=== PATIENT | male | born 1990 | race African-American/Black ===

== ENCOUNTER 2016-08-20 11:57 | Emergency (ER) | payer OTHER ==
[2016-08-20 12:15] VITALS: BP 109/56
--- NOTE | 2016-08-20 12:26 | PHYS DOC ---
Past Medical History Past Medical History: No Pertinent History Past Surgical History: No Surgical History Alcohol Use: None Drug Use: None Adult General Chief Complaint Chief Complaint: LOWER BACK PAIN OR INJURY [facility] HPI Patient is a 26 year old male presents emergency department stating that he has a history of chronic back pain. He states his pain is on his left lower back area with some numbness and tingling down to his leg. He states he took some type of muscle relaxer last night that was 50 mg and it did not help. Patient states the only medication that will help him is oxycodone and if he is not going to be prescribed at that he doesn't want anybody wasting his time. Patient denies any trauma or injuries. He states that he may have hurt his back when he was in high school playing football. [] Review of Systems Review of Systems Constitutional: Denies fever or chills [] Eyes: Denies change in visual acuity, redness, or eye pain [] HENT: Denies nasal congestion or sore throat [] Respiratory: Denies cough or shortness of breath [] Cardiovascular: No additional information not addressed in HPI [] GI: Denies abdominal pain, nausea, vomiting, bloody stools or diarrhea [] : Denies dysuria or hematuria [] Musculoskeletal: Left lower back pain denies joint pain Integument: Denies rash or skin lesions [] Neurologic: Denies headache, focal weakness or sensory changes [] Endocrine: Denies polyuria or polydipsia [] Allergies Allergies Allergies Coded Allergies Type Severity Reaction Last Updated Verified No Known Drug Allergies 01/04/14 No Physical Exam Physical Exam Constitutional: Well developed, well nourished, no acute distress, non-toxic appearance. [] HENT: Normocephalic, atraumatic, bilateral external ears normal, oropharynx moist, no oral exudates, nose normal. [] Eyes: PERRLA, EOMI, conjunctiva normal, no discharge. [] Neck: Normal range of motion, no tenderness, supple, no stridor. [] Cardiovascular:Heart rate regular rhythm Lungs & Thorax: No respiratory distress noted [] Skin: Warm, dry, no erythema, no rash. [] Back: Left lower back tenderness noted along the paraspinal area. No thoracic spine, no lumbar spine tenderness no deformities no crepitus no step-offs noted Extremities: No tenderness, no cyanosis, no clubbing, ROM intact, no edema. Peripheral pulses 2+ cap refill brisk less than 2 seconds. Patient was able to move lower extremities with no difficulty. Patient was able to bring the bilateral legs up with minimal discomfort noted. Neurologic: Alert and oriented X 3, normal motor function, normal sensory function, no focal deficits noted. [] Psychologic: Affect normal, judgement normal, mood normal. [] Current Patient Data Vital Signs Vital Signs Date Time Temp Pulse Resp B/P (MAP) Pulse Ox O2 Delivery O2 Flow Rate FiO2 08/20/16 12:15 97.9 52 18 99 Room Air 97.9 EKG EKG [] Radiology/Procedures Radiology/Procedures [] Course & Med Decision Making Course & Med Decision Making Pertinent Labs and Imaging studies reviewed. (See chart for details) Spoke with patient in regards to pain management. Explained that chronic pain should be managed by pain management physician or primary care physician. Patient was also informed that oxycodone is not the medication designed for chronic pain meds. Offered patient Flexeril, ibuprofen, prednisone with patient refusing the above. He continues to state he needs oxycodone for the pain and discomfort. Patient will be discharged home in stable condition with recommendations for the Tylenol or ibuprofen for pain and discomfort. He'll also be provided with pain management's number as well as neurology's number for further evaluation. Signs and symptoms to return back to emergency department as been provided. After patient has been discharged he has decided to try flexeril and prendisone. [] Dragon Disclaimer Dragon Disclaimer This electronic medical record was generated, in whole or in part, using a voice recognition dictation system. Departure Departure Impression: Primary Impression: Chronic back pain Disposition: 01 HOME, SELF-CARE Condition: STABLE Referrals: NO PCP (PCP) Patient Instructions: Chronic Back Pain Additional Instructions: Activity as tolerated. You have been offered Flexeril as a muscle relaxer, steroids to help with inflammation and discomfort. As well as ibuprofen for a nonsteroidal anti- inflammatory medication in which you have refused. Ice packs to the area on 20 minutes off 20 minutes several times a day may also help with pain and discomfort. Follow-up with either her pain management or a neurosurgeon regards to back pain. Return to the emergency department for signs and symptoms of become worse. Flexeril will cause drowsiness do not take if you need to be alert and oriented. Scripts Prednisone (PREDNISONE) 20 Mg Tablet 40 MG PO DAILY for 7 Days, #14 TAB Prov: FABIOLA KENDALL APRN 08/20/16 Cyclobenzaprine Hcl (CYCLOBENZAPRINE HCL) 10 Mg Tablet 10 MG PO TID, #20 TAB Prov: FABIOLA KENDALL APRN 08/20/16 FABIOLA KENDALL APRN Aug 20, 2016 12:26
[2016-08-20] MEDS ORDERED: PRED20TA PO (12:35)
[2016-08-20] MEDS ORDERED: CYCL10TA2 PO (12:35)
== END 2016-08-20 12:40 | disposition home or self-care (01) ==
LOC: ER 11:57
DX: G89.29 Other chronic pain (principal); M54.5 Low back pain; R20.0 Anesthesia of skin
CPT/HCPCS: 99283